=== PATIENT | female | born 1980 | race Caucasian/White ===

== ENCOUNTER 2017-09-28 17:23 | Emergency (ER) | payer SELFPAY ==
[2017-09-28 18:07] LABS: BASOPHILS % 0.4 (0.0-1.5); EOSINOPHILS % 0.9 % (0.0-6.8); MEAN CORPUSCULAR HEMOGLOBIN 28.2 pg (28.0-34.0); MEAN CORPUSCULAR VOLUME 89.6 fl (80.0-100.0); MONOCYTES % 5.1 % (0.0-11.0); NEUTROPHILS # 7.1 # k/uL (1.4-7.7)
[2017-09-28 18:23] LABS: eGFR (African) > 60; eGFR (Non-African) > 60
--- NOTE | 2017-09-28 18:44 | ED Physician Documentation ---
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 She felt like her talking was making her more short of breath. She had similar, fess intense episode a few months ago and was told she had an aneurysm or hole in her heart, near the right atrium (she had a bubble test at that time and recognizes "patent foramen ovale"). She had a 24 hour Holter. She has not been back to see the account leader and she has not had a 30 day Holter because she is self pay. No other modifying factors or associated signs. She wonders if her symptoms might be anxiety. She worries about her heart and her son. She is closing on the purchase of the [employer] tomorrow. Timing: gone now - ROS CONST: no problems - PAST HX Past History: other (see above. HLD) - SOCIAL HX Smoking History: cigarettes Drug Use: marijuana - FAMILY HX Family History: Yes (heart disease in 40's and 50's) - VITAL SIGNS Vital Signs: Vital Signs Temp Pulse Resp BP Pulse Ox 98.6 F 61 19 125/71 98 09/28/17 17:30 09/28/17 17:57 09/28/17 17:30 09/28/17 17:30 09/28/17 17:30 - REVIEWED ASSESSMENTS Nursing Assessment Reviewed: Yes Vitals Reviewed: Yes <SIGIFREDO HENDRIX - Last Filed: 09/28/17 18:38> - VITAL SIGNS Vital Signs: Vital Signs Temp Pulse Resp BP Pulse Ox 98.6 F 61 19 125/71 98 09/28/17 17:30 09/28/17 17:57 09/28/17 17:30 09/28/17 17:30 09/28/17 17:30 <Yessy Duffy - Last Filed: 09/28/17 19:41> - PAST HX Allergies/Adverse Reactions: Allergies Allergy/AdvReac Type Severity Reaction Status Date / Time No Known Allergies Allergy Unverified 09/28/17 17:49 Home Medications: Ambulatory Orders Medication Instructions Recorded Atorvastatin Calcium [Lipitor] 80 mg PO HS 07/02/18 Bupropion HCl [Wellbutrin Xl] 150 mg PO 09/28/17 Progress - Progress Progress: 1919: Results discussed. Follow up recommended. She does feel anxious due to things going on in her life. DG 1924: Pt agreeable to plan she is agreeable to discharge DG <Yessy Duffy - Last Filed: 09/28/17 19:41> ED Results Lab/Radiology - Lab Results Lab Results: Lab Results 09/28/17 09/28/17 09/28/17 18:00 18:00 18:00 WBC 11.20 K/ul K/ul (4.00-12.00) RBC 4.30 M/ul M/ul (3.90-5.20) Hgb 12.1 g/dL g/dL (12.0-16.0) Hct 38.5 % % (34.5-46.5) MCV 89.6 fl fl (80.0-100.0) MCH 28.2 pg pg (28.0-34.0) MCHC 31.4 g/dL g/dL (30.0-36.0) RDW 15.1 % H % (11.3-14.3) Plt Count 275 K/mm3 K/mm3 (130-400) Neut % (Auto) 62.9 % % (39.0-79.0) Lymph % (Auto) 28.6 % % (16.0-50.0) [place] % (Auto) 5.1 % % (0.0-11.0) Eos % (Auto) 0.9 % % (0.0-6.8) Baso % (Auto) 0.4 (0.0-1.5) Neut # (Auto) 7.1 # k/uL # k/uL (1.4-7.7) Lymph # (Auto) 3.2 # k/uL # k/uL (0.6-4.0) [place] # (Auto) 0.6 # k/uL # k/uL (0.0-0.9) Eos # (Auto) 0.1 # k/uL # k/uL (0.0-0.6) Baso # (Auto) 0.0 # k/uL # k/uL (0.0-0.5) Reactive Lymphs % 2.1 % % (0.0-5.0) Reactive Lymphs # 0.2 # k/uL # k/uL (0.0-0.8) Sodium 137 mmol/L mmol/L (136-145) Potassium 3.9 mmol/L mmol/L (3.5-5.1) Chloride 103 mmol/L mmol/L (98-107) Carbon Dioxide 22 mmol/L mmol/L (22-30) BUN 12 mg/dL mg/dL (7-17) Creatinine 0.70 mg/dL mg/dL (0.52-1.04) Estimated Creat Clear 179 Est GFR ( Amer) > 60 (60 - ) Est GFR (Non-Af Amer) > 60 (60 - ) Glucose 90 mg/dL mg/dL (74-106) Calcium 9.5 mg/dL mg/dL (8.4-10.2) Total Bilirubin < 0.1 mg/dL L mg/dL (0.2-1.3) AST 19 U/L U/L (15-46) ALT 33 U/L U/L (13-69) Alkaline Phosphatase 97 U/L U/L (38-126) Troponin I < 0.03 ng/mL L ng/mL (0.03-0.06) Total Protein 8.4 g/dL H g/dL (6.3-8.2) Albumin 4.8 g/dL g/dL (3.5-5.0) - Orders Orders: ED Orders Category Date Time Status Continuous EKG monitoring Q1H Care 09/28/17 17:[address] IV Lock 1T Care 09/28/17 17:57 Active CHEST 2VIEW [RAD] Stat Exams 09/28/17 Ordered CBC/PLATELET/DIFF Routine Lab 09/28/17 18:00 Completed CMP Routine Lab 09/28/17 18:00 Completed TROPONIN I (cTnI) Stat Lab 09/28/17 18:00 Completed URINALYSIS Routine Lab 09/28/17 Ordered EKG WITH COMPARISON Routine Ther 09/28/17 Completed <SIGIFREDO HENDRIX - Last Filed: 09/28/17 18:38> - Lab Results Lab Results: Lab Results 09/28/17 09/28/17 09/28/17 18:00 18:00 18:00 WBC 11.20 K/ul K/ul (4.00-12.00) RBC 4.30 M/ul M/ul (3.90-5.20) Hgb 12.1 g/dL g/dL (12.0-16.0) Hct 38.5 % % (34.5-46.5) MCV 89.6 fl fl (80.0-100.0) MCH 28.2 pg pg (28.0-34.0) MCHC 31.4 g/dL g/dL (30.0-36.0) RDW 15.1 % H % (11.3-14.3) Plt Count 275 K/mm3 K/mm3 (130-400) Neut % (Auto) 62.9 % % (39.0-79.0) Lymph % (Auto) 28.6 % % (16.0-50.0) [place] % (Auto) 5.1 % % (0.0-11.0) Eos % (Auto) 0.9 % % (0.0-6.8) Baso % (Auto) 0.4 (0.0-1.5) Neut # (Auto) 7.1 # k/uL # k/uL (1.4-7.7) Lymph # (Auto) 3.2 # k/uL # k/uL (0.6-4.0) [place] # (Auto) 0.6 # k/uL # k/uL (0.0-0.9) Eos # (Auto) 0.1 # k/uL # k/uL (0.0-0.6) Baso # (Auto) 0.0 # k/uL # k/uL (0.0-0.5) Reactive Lymphs % 2.1 % % (0.0-5.0) Reactive Lymphs # 0.2 # k/uL # k/uL (0.0-0.8) Sodium 137 mmol/L mmol/L (136-145) Potassium 3.9 mmol/L mmol/L (3.5-5.1) Chloride 103 mmol/L mmol/L (98-107) Carbon Dioxide 22 mmol/L mmol/L (22-30) BUN 12 mg/dL mg/dL (7-17) Creatinine 0.70 mg/dL mg/dL (0.52-1.04) Estimated Creat Clear 179 Est GFR ( Amer) > 60 (60 - ) Est GFR (Non-Af Amer) > 60 (60 - ) Glucose 90 mg/dL mg/dL (74-106) Calcium 9.5 mg/dL mg/dL (8.4-10.2) Total Bilirubin < 0.1 mg/dL L mg/dL (0.2-1.3) AST 19 U/L U/L (15-46) ALT 33 U/L U/L (13-69) Alkaline Phosphatase 97 U/L U/L (38-126) Troponin I < 0.03 ng/mL L ng/mL (0.03-0.06) Total Protein 8.4 g/dL H g/dL (6.3-8.2) Albumin 4.8 g/dL g/dL (3.5-5.0) - Orders Orders: ED Orders Category Date Time Status Continuous EKG monitoring Q1H Care 09/28/17 17:[address] IV Lock 1T Care 09/28/17 17:57 Active CHEST 2VIEW [RAD] Stat Exams 09/28/17 Taken CBC/PLATELET/DIFF Routine Lab 09/28/17 18:00 Completed CMP Routine Lab 09/28/17 18:00 Completed TROPONIN I (cTnI) Stat Lab 09/28/17 18:00 Completed URINALYSIS Routine Lab 09/28/17 Ordered EKG WITH COMPARISON Routine Ther 09/28/17 Completed <Yessy Duffy - Last Filed: 09/28/17 19:41> General Adult Physical Exam - PHYSICAL EXAM GENERAL APPEARANCE: mild distress (anxious) EENT: eye inspection normal, ENT inspection normal, pharynx normal NECK: normal inspection, supple. No: lymphadenopathy RESPIRATORY: no resp distress, chest non-tender, breath sounds normal CVS: reg rate & rhythm, heart sounds normal, no murmur ABDOMEN: soft, normal bowel sounds BACK: normal inspection, no CVA tenderness, other (no vertebral tenderness) SKIN: warm/dry, normal color EXTREMITIES: normal range of motion (gait and stance), no evidence of injury NEURO: CN's nml as tested, motor nml, sensation nml, cognition normal <SIGIFREDO HENDRIX - Last Filed: 09/28/17 18:38> - PHYSICAL EXAM GENERAL APPEARANCE: no distress EENT: eye inspection normal NECK: normal inspection RESPIRATORY: no resp distress CVS: reg rate & rhythm ABDOMEN: soft SKIN: warm/dry EXTREMITIES: normal range of motion NEURO: CN's nml as tested <Yessy Duffy - Last Filed: 09/28/17 19:41> Discharge <SIGIFREDO HENDRIX - Last Filed: 09/28/17 18:38> Comments: 1. Follow up with PCP for further work up on the chest pain/heart flutter 2. Xanax 0.25 mg Take 1 by mouth every 8 hours as needed for anxiety 3. Return to ER for any further concerns Decision to Admit: NO Date of Decison to Admit: 09/28/17 Decision Time: 19:21 <Yessy Duffy - Last Filed: 09/28/17 19:41> Clincal Impression: Chest pain Qualifiers: Chest pain type: unspecified Qualified Code(s): R07.9 - Chest pain, unspecified Referrals: Laurie Deluna, MANAGER [place] [Primary Care Provider] - 2 Days Condition: Stable Disposition: 01 HOME, SELF-CARE
[2017-09-28 19:31] VITALS: BP 106/68
--- NOTE | 2017-09-29 06:00 | Diagnostic Imaging Report ---
SIGIFREDO HENDRIX [facility] [id number] [facility] [address] [place] [address]. [id number] Report Submission Date: Sep 28, 2017 6:51:54 PM CDT Patient Study Name: BRANDON ROSENTHAL Date: Sep 28, 2017 6:26:11 PM CDT Modality Type: DX Gender: F Description: CHEST : 76 Institution: [facility] Physician: SIGIFREDO HENDRIX Chest, PA and lateral HISTORY Syncope. FINDINGS The heart, lungs, pleura, mediastinum and bony thorax are normal. IMPRESSION Normal. Electronically signed on Sep 28, 2017 6:51:54 PM CDT by: Kelvin COTA
[2017-09-29 07:56] LABS: APPEARANCE,URINE CLEAR (CLEAR); COLOR,URINE YELLOW (YELLOW); OCCULT BLOOD,URINE 1+ (NEGATIVE); URINE HCG NEGATIVE (NEGATIVE); UROBILINOGEN URINE 0.2 Eu (0.2-1.0)
== END 2017-09-28 19:30 | disposition home or self-care (01) ==
LOC: ED 17:23
DX: R07.9 Chest pain, unspecified (principal)
CPT/HCPCS: 71046; 80053; 81002; 81025; 84484; 85025; 87086; 99285; S1016